=== PATIENT | male | born 1985 | race Asian ===

== ENCOUNTER 2020-10-16 13:07 | Emergency (ER) | payer OTHER ==
[~2020-10-16] VITALS: Ht 177.8 cm; Wt 73.5 kg
--- NOTE | 2020-10-16 13:07 | NUR ---
Patient to ER bed 06 to gown for evaluation. Side rails up.
--- NOTE | 2020-10-16 13:10 | NUR ---
PT CAME TO ER [facility] C/O LLQ ABD PAIN AND NAUSEA STARTING TODAY. REPORTS THROWING UP EARLIER TODAY. PT IS AMBULATORY, AAOX4, V/S STABLE UPON ARRIVAL
[2020-10-16 13:14] VITALS: BP_SYST 134
--- NOTE | 2020-10-16 13:20 | NUR ---
ER DR. RAMIREZ AT THE BEDSIDE EXAMINING PT
[2020-10-16] MEDS ORDERED: KETOROLAC TROMETHAMINE 60 MG/2 ML VIAL IM ONE (13:30)
[2020-10-16] MEDS ORDERED: ONDANSETRON 4 MG ODT TAB PO ONE (13:30)
--- NOTE | 2020-10-16 13:36 | NUR ---
Patient transported to radiology via WC, accompanied by STAFF.
[2020-10-16 13:53] LABS: BILIRUBIN,URINE NEGATIVE (NEGATIVE); BLOOD, URINE 3+ (NEGATIVE); COLOR,URINE YELLOW (YELLOW); GLUCOSE,URINE NEGATIVE (NEGATIVE); KETONES,URINE 3+ (NEGATIVE); LEUKOCYTE ESTERASE ,URINE TRACE (NEGATIVE); NITRITE, URINE NEGATIVE (NEGATIVE); PROTEIN URINE 2+ (NEGATIVE)
[2020-10-16 13:58] LABS: CLARITY/URINE SLIGHTLY HAZY (CLEAR)
--- NOTE | 2020-10-16 13:58 | NUR ---
LAB AT THE BEDSIDE FOR BLOOD DRAW
[2020-10-16 14:12] LABS: BACTERIA,URINE FEW /HPF (None Seen); WBC,URINE 0-3 /HPF (0-3)
[2020-10-16 14:15] LABS: BASOPHILS % (AUTO) 0.1 % (0.0-2.0); EOSINOPHILS % (AUTO) 0.1 % (0.0-4.0); HEMATOCRIT 46.5 % (36-54); HEMOGLOBIN 15.9 g/dL (14.0-18.0); LYMPHOCYTES # (AUTO) 0.3 K/uL (1.0-5.5); MEAN CORPUSCULAR HEMOGLOBIN 29 pg (27-31); MEAN CORPUSCULAR HGB CONC 34 % (32-36); MEAN CORPUSCULAR VOLUME 86 fL (79.0-98.0); MONOCYTES # (AUTO) 0.2 K/uL (0.0-1.0); NEUTROPHILS # (AUTO) 11.1 K/uL (1.8-7.7); NEUTROPHILS % (AUTO) 94.8 % (40.0-70.0); PLATELET COUNT (AUTO) 190 K/uL (130-430); RED BLOOD CELL COUNT(AUTO) 5.39 MIL/uL (4.2-6.2); RED CELL DISTRIBUTION WIDTH 12.4 % (9.0-15.0); WHITE BLOOD COUNT (AUTO) 11.7 K/uL (4.8-10.8)
[2020-10-16 14:21] LABS: ANION GAP 8 (5-15); CALCIUM 8.6 mg/dL (8.4-11.0); CHLORIDE 107 mmol/L (98-107); CREATININE 1.23 mg/dL (0.55-1.30); GLUCOSE 115 mg/dL (70-99); POTASSIUM 3.9 mmol/L (3.5-5.1); SODIUM SERUM 140 mmol/L (136-145); UREA NITROGEN, BLOOD 18 mg/dL (8-21)
[2020-10-16 14:23] LABS: GFR AFRICAN AMERICAN 87 mL/min (>90)
[2020-10-16 14:27] LABS: ALANINE AMINOTRANSFERASE 25 U/L (12-78); ALBUMIN 4.2 g/dL (3.4-4.8); AMYLASE 54 U/L (0-100); ASPARTATE AMINOTRANSFERASE 25 U/L (10-37); LIPASE 56 U/L (73-393); TOTAL BILIRUBIN 0.8 mg/dL (0.0-1.0)
[2020-10-16 14:33] LABS: PROTHROMBIN TIME 10.5 SECS (9.5-12.5)
[2020-10-16 14:39] LABS: C-REACTIVE PROTEIN QUANT < 0.2 mg/dL (0-0.5)
[2020-10-16 15:02] VITALS: BP_SYST 134
--- NOTE | 2020-10-16 15:05 | NUR ---
Patient given written and verbal discharge instructions and verbalizes understanding. ER MD discussed with patient the results and treatment provided. Patient in stable condition. ID arm band removed. Rx of MOTRIN AND NORCO given. Patient educated on pain management and to follow up with PMD. Pain Scale 2/10. Opportunity for questions provided and answered. Medication side effect fact sheet provided.
[2020-10-17] MEDS ORDERED: BACI15OI13 TP (21:41)
[2020-10-17] MEDS ORDERED: HYDR-3917 PO (21:41)
== END 2020-10-16 15:05 | disposition home or self-care (01) ==
LOC: SED 13:07
DX: N23 Unspecified renal colic (principal)
CPT/HCPCS: 36415; 74176; 76376; 80053; 81000; 82150; 83605; 83690; 85025; 85610; 85730; 86140; 96372; 99284; J1885; Q0162

== ENCOUNTER 2020-10-17 18:47 | Emergency (ER) | payer OTHER ==
[~2020-10-17] VITALS: Ht 177.8 cm; Wt 81.6 kg
[2020-10-17 19:00] VITALS: BP_SYST 119
--- NOTE | 2020-10-17 19:20 | NUR ---
Patient to ER bed 04 to gown for evaluation. Side rails up.
--- NOTE | 2020-10-17 19:22 | NUR ---
Pt brought by self, A&OX4, Pt presents to ER with LAC on L lower leg after a piece of glass fell on L lower leg, bleeding controlled, pedal pulses equal and strong,will cont to monitor.
[2020-10-17] MEDS ORDERED: LIDOCAINE 1%, 20 ML MDV 20 ML ONE (21:31)
[2020-10-17] MEDS ORDERED: BACI15OI13 TP (21:41)
[2020-10-17] MEDS ORDERED: HYDR-3917 PO (21:41)
--- NOTE | 2020-10-17 22:11 | NUR ---
Patient has a 2.5 cm laceration to left lower leg. Dr. Hurley applied sutures using sterile technique and drew. Edges well approximated. Site cleansed with NSS and Betadine. Dressing of NONE -Adhesive gauze applied to site. No bleeding noted. Pt tolerated well.
[2020-10-17 22:36] VITALS: BP_SYST 119
--- NOTE | 2020-10-17 22:36 | NUR ---
Patient given written and verbal discharge instructions and verbalizes understanding. ER MD discussed with patient the results and treatment provided. Patient in stable condition. ID arm band removed. Rx of Bacitracin and [place] given. Patient educated on pain management and to follow up with PMD. Pain Scale 1/10. Opportunity for questions provided and answered. Medication side effect fact sheet provided.
[2020-10-17] MEDS ORDERED: DIPH-TET-PERTUS Vaccine 0.5 ML VIAL (ADACEL) I.M. ONE (22:45)
== END 2020-10-17 22:36 | disposition home or self-care (01) ==
LOC: SED 18:47
DX: S81.812A Laceration without foreign body, left lower leg, initial encounter (principal); Z79.899 Other long term (current) drug therapy; W25.XXXA Contact with sharp glass, initial encounter; Y93.89 Activity, other specified; Y92.89 Other specified places as the place of occurrence of the external cause; Y99.8 Other external cause status
CPT/HCPCS: 12004; 90471; 90715; 99283; J2001

== ENCOUNTER 2020-10-28 14:27 | Emergency (ER) | payer OTHER ==
[~2020-10-28] VITALS: Ht 177.8 cm; Wt 53.1 kg
[~2020-10-28 14:27] MED LIST: BACI15OI13 TP; HYDR-3917 PO
[2020-10-28 14:44] VITALS: BP_SYST 110
--- NOTE | 2020-10-28 15:30 | NUR ---
Patient to ER bed H1 to gown for evaluation. Side rails up.
--- NOTE | 2020-10-28 15:32 | NUR ---
Pt brought by self, A&Ox4, pt brought by self, A&Ox4, pt presents to ER for drew removal from L leg, no s/s of infecton noted, VSS.
--- NOTE | 2020-10-28 15:40 | NUR ---
Dr Tyler evaluating patient at bedside
[2020-10-28 16:18] VITALS: BP_SYST 110
--- NOTE | 2020-10-28 16:24 | NUR ---
Patient given written and verbal discharge instructions and verbalizes understanding. ER MD discussed with patient the results and treatment provided. Patient in stable condition. ID arm band removed. No Rx given. Patient educated on pain management and to follow up with PMD. Pain Scale 0/10. Opportunity for questions provided and answered. Medication side effect fact sheet provided.
== END 2020-10-28 16:24 | disposition home or self-care (01) ==
LOC: SED 14:27
DX: S81.812D Laceration without foreign body, left lower leg, subsequent encounter (principal); Z48.02 Encounter for removal of sutures; W25.XXXD Contact with sharp glass, subsequent encounter
CPT/HCPCS: 99281